=== PATIENT | female | born 1985 | race Caucasian/White ===

== ENCOUNTER 2019-01-14 13:38 | Emergency (ER) | payer OTHER, SELFPAY ==
[2019-01-14 13:40] VITALS: BP 110/73; PULSE 65; RESP 16; TEMP 36.4; O2SAT 97; BMI 24.5
[2019-01-14 14:15] LABS: Absolute Lymphocyte Count 2.16 X10^3/uL (0.83-4.51); Basophil# 0.04 X10^3/uL; Basophil% 0.5 % (0-1); Eosinophil# 0.77 X10^3/uL; Eosinophils% 10.5 % (0-5); Hematocrit 44.8 % (37-47); Hemoglobin 15.4 g/dL (12.0-15.0); Lymphocyte # 2.16 X10^3/ul (4.0); Lymphocyte % 29.3 % (19-41); Mean Corp Hgb Conc 34.4 g/dL (32-36); Mean Corpuscular Hgb 31.6 pg (27.0-32.0); Mean Platelet Vol. 9.9 fl (6.2-12.0); Monocyte# 0.38 X10^3/uL; Monocyte% 5.2 % (0-10); NRBC Flagged by Analyzer 0 % (0-5); Neutrophil # 3.99 X10^3/uL (2.7-7.7); Neutrophil % 54.2 % (47-70); Platelet Count 276 K/mm3 (150-450); RBC Distribution Width SD 40.6 fl (35.1-43.9); Red Blood Count 4.87 M/mm3 (4.2-5.4); White Blood Count 7.4 K/mm3 (4.4-11.0)
[2019-01-14 14:27] LABS: Anion Gap 6 (5-15); BUN 10 mg/dL (7-18); Calcium,Total 9.7 mg/dL (8.5-10.1); Chloride 107 mmol/L (98-107); Creatinine, Serum 0.77 mg/dL (0.55-1.02); EST Glomerular Filtration Rate 91 mL/min (>60); Est Glom Filt Rate - Afr Amer 110 mL/min (>60); Estimated Creatinine Clearance 85.16 ml/min; Glucose 92 mg/dL (74-106); Internal QC Validated? YES +Cl - CLEAR BKGD; Potassium 3.6 mmol/L (3.5-5.1); Pregnancy, Serum, hCG Quali. NEGATIVE Negative; Sodium Level 141 mmol/L (136-145)
--- NOTE | 2019-01-14 15:12 | US_ITS ---
STUDY: ABDOMINAL ULTRASOUND - RIGHT UPPER QUADRANT REASON FOR VISIT: Female, 33 years old intermittent right upper quadrant pain for days. TECHNIQUE: Ultrasound evaluation of the right upper quadrant was performed with real-time and static winters-scale imaging. TECHNICAL QUALITY: Adequate. COMPARISON: None. FINDINGS: Liver: The liver measures 15.0 cm. There is normal echogenicity of the liver. The bile ducts are within normal limits. There is hepatic color flow. The direction of portal flow is hepatopetal. There is no demonstrated mass lesion. Gallbladder: Normal distended gallbladder. The gallbladder wall measures 2 mm. There is a negative sonographic Camar[place]'s sign. There is no pericholecystic fluid. There are no gallstones. Common Bile Duct (C.B.D.): The common bile duct measures 3 mm. Pancreas: Normal size of the head, body and tail of the pancreas. There is normal echogenicity of the pancreas. There is no demonstrated pancreatic mass or cyst. Right Kidney: Normal size of the right kidney. The right kidney measures 9.95 x 3.73 x 4.55 cm. Normal renal cortex. The right cortex measures 1.13 cm. There is no demonstrated renal mass or cyst. 8mm hyper echogenicity at the lower pole could be a nonobstructing stone. The thickness of the renal pelvis region is 12 mm, but there is no other sign of right hydronephrosis. US/Gallbladder IMPRESSION: Possible nonobstructing 8 mm stone at the lower pole of the right kidney. No hydronephrosis. If clinical indications warrant additional imaging, one might consider noncontrast CT. Otherwise, normal right upper quadrant ultrasound. Electronically Signed: Michel Link MD at 17:23 EST , Service support ,
[2019-01-14 15:42] LABS: Mucous, Urine 0 SEEN /hpf (<or=2+); Red Blood Cells-Urine 0 SEEN /hpf (0-5); Squamous Epithelial Cells - UA 0 SEEN /hpf (5-10); White Blood Cells 0 SEEN /hpf (0-5)
[2019-01-14] MEDS: 0.9% Normal Saline 1,000 ML 125 ML IV (15:50)
[2019-01-14 15:54] LABS: Color, Urine Straw (Yellow); Glucose, Dipstick Normal (Normal); Ketone-Dipstick Negative (Negative); Leukocyte Esterase-Dipstick Negative /ul (Negative); Nitrite-Dipstick Negative (Negative); Occult Blood-Urine Negative /ul (Negative); Protein-Dipstick Negative (Negative); Specific Gravity, Urine 1.015 (1.002-1.030); Urine Bilirubin Dipstick Negative (Negative); Urine Clarity Cloudy (Clear); Urine Urobilinogen Normal (Normal)
[2019-01-14 15:58] LABS: AST(SGOT) 4 U/L (15-37); Alanine Aminotransfer ALT/SGPT 21 U/L (13-56); Albumin, Serum 4.4 g/dL (3.2-5.0); Alkaline Phosphatase 73 U/L (45-117); Bilirubin, Direct 0.12 mg/dL (0.00-0.30); Lipase 122 U/L (73-393); Protein, Total 8.4 g/dL (6.4-8.2)
[2019-01-14 16:13] LABS: Amorphous Sediment 1+; Bacteria 4+ /hpf (None Seen)
--- NOTE | 2019-01-14 17:46 | CT_ITS ---
STUDY: CT ABDOMEN AND PELVIS WITHOUT CONTRAST REASON FOR EXAM: Female, 33 years old. Abdominal pain x 1 week. Nausea/vomiting/diarrhea. Possible right kidney stone on ultrasound. RADIATION DOSAGE (If Supplied By Facility): CTDIvol = ( 7.00 ) mGy, DLP = ( 354.78 ) mGycm TECHNIQUE: Transaxial images were obtained from the dome of the diaphragm to the symphysis pubis without oral contrast, and without intravenous contrast. Sagittal and coronal images were reconstructed. Individualized dose optimization techniques were used for this CT. COMPARISON: Right upper quadrant ultrasound 1542 hours. FINDINGS: The visualized lung bases are unremarkable. The visualized portions of the heart are within normal limits. Focal pericapsular calcification along the diaphragm and medial dome of the liver. Normal gallbladder and extrahepatic biliary system. Normal spleen. Normal pancreas. Normal bilateral adrenal glands. 3.5 mm nonobstructing stone seen at the lower pole of the right kidney. Nonobstructing 1 mm stone is questioned at the mid pole of the left kidney. No hydronephrosis Normal visualized stomach. Normal small intestine. Normal colon. The appendix is suggested on series 601 images 37-40 and appears normal. Normal abdominal aorta. Normal inferior vena cava. Normal retroperitoneum. Normal urinary bladder. Normal size uterus, anteverted and mildly tilted to the right of midline. Some heterogeneity in the left ovary consistent with follicular cysts. Possible dominant 1.4 cm left ovarian cyst. There is a small umbilical hernia containing fat. There are mild degenerative changes and mild levoscoliosis of the visualized lumbar spine. CT/Abdomen/Pelvis without Cont IMPRESSION: 1. 3.5 mm nonobstructing stone at the lower pole of the right kidney and possible nonobstructing 1 mm stone on the left. No hydronephrosis. 2. The bowel is unremarkable without sign of obstruction. The appendix is normal. 3. Probable follicular cysts in the left ovary. The uterus is normal. Electronically Signed: Michel Link MD at 18:42 EST , Service support ,
[2019-01-14 19:00] VITALS: BP 116/80; PULSE 82; RESP 16; O2SAT 98
--- NOTE | 2019-01-14 19:12 | ED.DCSUM_ITS ---
- ER Visit Summary Date of Service: 01/14/19 Chief Complaint: [Abdominal pain] History of Present Illness: The patient is a 33 F [presents to the emergency department complaint of abdominal pain that started 3 or 4 days ago. Patient states that she is had intermittent pain mostly the upper abdomen but at times diffusely. Patient states that eating actually will bring it on at times. Patient's had nausea and vomited x2 with this a couple of days ago. She has had some intermittent diarrhea for the last 5 days but none today. Patient denies any fevers. She denies urinary symptoms. She does not feel like she is . She does have history of a hiatal hernia.] Physical Examination: [HEENT-PERRLA, EOMI. Cranial nerves II through XII grossly intact. TMs clear. Mucous membranes moist. No adenopathy. Cardiovascular-regular rate and rhythm without murmur or ectopy Lungs-clear to auscultation, chest wall stable without crepitus or subcu emphysema Abdomen-normoactive bowel sounds, soft, nontender, no rebound or rigidity, no peritoneal signs. Extremities-intact ?4, normal range of motion, normal pulses, atraumatic] Test Results: [CBC with differential count 7.4, hemoglobin 15, hematocrit 45, platelets 276. Chemistries unremarkable. LFTs were unremarkable. Lipase was normal 122. Urinalysis was normal. hCG was negative. Ultrasound of the right upper quadrant showed a questionable 8 mm stone nonobstructing in the right kidney otherwise it was normal. Patient also had a CT flank that showed a 3.5 mm stone in the right kidney otherwise nothing acute.] Emergency Department Course and Treatment: [] Treatment Plan: [Patient will follow-up with general surgeon on-call. Patient will be started on Prevacid.] Disposition: [Discharged home in stable condition.] Impression: [Abdominal pain-etiology uncertain] This note was generated with [employer] dictation software. It may contain incorrect words, spelling, and punctuation that were not noted in review of the chart prior to signing ED Disposition - Plan for ED Patient: Referrals: Avelino Tena DO [Primary Care Provider] -
--- NOTE | 2019-01-14 19:15 | ED.DEP ---
ED Disposition - Plan for ED Patient: Instructions: ABDOMINAL PAIN, Unknown Cause, (Female) Prescriptions: Lansoprazole [Prevacid] 30 mg PO DAILY #30 cap Prescription Printed Ondansetron [Zofran Odt] 4 mg PO Q8H PRN PRN #10 tab PRN Reason: Nausea Prescription Printed Referrals: Avelino Tena DO [Primary Care Provider] - Jaime Hatch MD [STAFF PHYSICIAN] - 3-5 Days
[2019-01-14 19:29] VITALS: RESP 16
== END 2019-01-14 19:30 | disposition home or self-care (01) ==
LOC: ED 15:36
PROVIDERS: Emergency Provider Emergency Medicine; Family Provider Family Medicine; PCP Family Medicine
DX: R10.11 Right upper quadrant pain (principal); R19.7 Diarrhea, unspecified; R11.2 Nausea with vomiting, unspecified
CPT/HCPCS: 74176; 76705; 80048; 80076; 81001; 83690; 84703; 85025; 96360; 96361; 99285; A4216

== ENCOUNTER 2023-02-19 12:08 | Emergency (ER) | payer OTHER, SELFPAY ==
[2023-02-19 12:10] VITALS: BP 111/80; PULSE 94; RESP 14; TEMP 36.2; O2SAT 77; BMI 28.5
--- NOTE | 2023-02-19 12:57 | CT_ITS ---
STUDY: CT Abdomen And Pelvis W/ Contrast Injection 02/19/2023 2:23 PM REASON FOR EXAM: Female, 37 years old. ABDOMINAL PAIN pain, diarrhea TECHNIQUE: Transaxial images were obtained without oral contrast, and with IV 50mL Isovue-370 intravenous contrast. Individualized dose optimization techniques were used for this CT. COMPARISON: 01.14.19 FINDINGS: The visualized lung bases are unremarkable. The visualized portions of the heart are within normal limits. Unremarkable liver. Unremarkable gallbladder and extrahepatic biliary system. Unremarkable spleen. Unremarkable pancreas. Unremarkable bilateral adrenal glands. No acute findings of the right kidney. No acute findings of the left kidney. Unremarkable visualized stomach. Unremarkable small intestine. Diffuse wall thickening and enhancement of the wall of the colon suggesting colitis. The appendix is visualized and appears unremarkable. There are no acute findings of the abdominal aorta. Unremarkable inferior vena cava. Subcentimeter mesenteric lymph nodes. Unremarkable urinary bladder. Normal visualized uterus. Midline ventral hernia and umbilical hernia containing fat. There are diffuse degenerative changes of the visualized lumbar spine. CT/Abdomen/Pelvis W IV Cont ONLY IMPRESSION: (NOT LISTED IN ORDER OF SIGNIFICANCE) Pancolitis. Other findings as above. Electronically Signed: Tee Granger MD at 14:25 [facility] ,
--- NOTE | 2023-02-19 12:58 | ED.VIS.GI ---
HPI HPI - GI History of Present Illness Chief Complaint: Abd Pain Informant: patient and spouse/S.O. Narrative Narrative: Patient presents with about 4 to 5 weeks of diarrhea. Almost 2 months ago patient traveled to [place]. This is because the patient has over 10 years of chronic fatigue and fibromyalgia and just not feeling well. They were hoping to getting some answers for this. While they were there, the patient's Lyme titers came back positive as well as to other tickborne diseases. She was on 5 unknown antibiotics for a period of time. She was also transferred to another hospital in [place] that diagnosed right frontal lobe intermittent seizures. Ever since coming back she has had diarrhea. It actually started while she was still there. It started after 5 of these antibiotics. She is not on them anymore. She has not seen healthcare corporate account director. She called her primary physician who recommended Imodium and fiber. That has not helped a lot. She has never seen blood. She went to [facility] about a week ago. Blood work was done and she was given IV fluids, and they did stool studies including C. difficile colitis which was negative. She has some nonfocal abdominal pain. No family history of ulcerative colitis or Crohn's. She has never had abdominal surgeries. [facility] Medical History Anxiety and depression Epilepsy Lyme disease Home Medications melatonin 5 mg tablet,immediate and extended release 5 mg PO QHS PRN Sleep 12/22/16 [History Last Taken Unknown] lansoprazole 30 mg capsule,delayed release 30 mg PO DAILY #30 caps 01/14/19 [Rx Last Taken Unknown] ondansetron 4 mg disintegrating tablet 4 mg PO Q8H PRN PRN Nausea #10 tabs 01/14/19 [Rx Last Taken Unknown] sertraline 50 mg tablet 50 mg PO DAILY 01/14/19 [History Last Taken Unknown] budesonide 9 mg tablet,delayed and extended release 9 mg PO DAILY #7 ea 02/19/23 [Rx Last Taken Unknown] dicyclomine 20 mg tablet 20 mg PO TID PRN abdominal pain #14 tabs 02/19/23 [Rx Last Taken Unknown] Allergy/AdvReac Type Severity Reaction Status Date / Time No Known Allergies Allergy Verified 02/19/23 12:09 Social History Smoking Status: Never smoker ROS ROS ED ROS Narrative A complete review of systems was performed and is negative except as documented in the history of present illness. Some specific details below. Constitutional: No recent fevers or chills. EYE: No visual complaints or pain. No change in eye color. ENT: No difficulty swallowing. No swelling. No pain. No GERD. CV: No chest pain or palpitations. Respiratory: No dyspnea. No hemoptysis. No difficulty taking breaths. GI: Please see history of present illness. : No frequency dysuria or hematuria. Musculoskeletal: No recent trauma. No pains. Skin: No rash. Nondiaphoretic. Neuro: No weakness or numbness. Endocrine: No polyuria or polydipsia. EXAM Physical Exam Narrative Exam Narrative: CONSTITUTIONAL: Patient is nontoxic in appearance. The patient looks comfortable. HEENT: No notable trauma. Mucous membranes moist. EYES: No conjunctival injection. No icterus. CARDIOVASCULAR: Regular rate. Regular rhythm. No notable murmur. No JVD. RESPIRATORY: No respiratory distress. Breathing is unlabored. No wheezes. No rhonchi. No rales. No pain with a deep breath. GASTROINTESTINAL: Not distended. Bowel sounds are normal. No tenderness. No guarding. No rebound. No palpable mass. No bruit. Overall abdominal exam is benign. GENITOURINARY: No tenderness over the bladder. No CVA tenderness. MUSCULOSKELETAL: Atraumatic. No peripheral edema. NEUROLOGICAL: Patient is alert and appropriate. No focal deficit noted. SKIN: No noted rashes. No diaphoresis. PSYCHIATRIC: Patient is calm. Mood is flat. Const Vital Signs: 02/19/23 12:10 Temperature 97.1 F L Temperature Source Temporal Pulse Rate 94 Respiratory Rate 14 Blood Pressure 111/80 Blood Pressure Mean 90 Pulse Ox 77 Oxygen Delivery Method Room Air MDM MDM MDM Narrative Medical decision making narrative: My independent interpretation of the patient's CT of the abdomen shows no obstruction or ileus. Mild thickening of the colon. Final reading is some pancolitis but normal small bowel and visualized appendix. Patient BC is normal. Patient's electrolytes show minimally low potassium at 3.3 but that should self-correct. Glucose is minimally up at 112. Patient's liver function test are normal. We talked about options. I really do not want to give this patient further antibiotics. She has no fever no white count. I was able to get back her C. difficile and that is negative. There is no family history of ulcerative colitis or Crohn's. But I wonder if she may have UC. I will give her oral budesonide to see if this will calm things down. I have strongly encouraged follow-up with healthcare corporate account director as soon as they are able to get in. Lab Data Attestation: I reviewed the patient's lab results. Labs: Laboratory Results - last 24 hr 02/19/23 12:30 WBC 5.3 RBC 4.67 Hgb 14.1 Hct 43.0 MCV 92.1 MCH 30.2 MCHC 32.8 RDW Std Deviation 43.8 RDW Coeff of Annetta 13.2 Plt Count 348 MPV 9.5 Immature Gran % (Auto) 0.600 Neut % (Auto) 57.4 Lymph % (Auto) 29.4 [place] % (Auto) 9.6 Eos % (Auto) 2.1 Baso % (Auto) 0.9 Absolute Neuts (auto) 3.1 Absolute Lymphs (auto) 1.56 Nucleated RBC % 0 Sodium 139 Potassium 3.3 L Chloride 106 Carbon Dioxide 29.0 Anion Gap 4 L BUN 5 L Creatinine 0.84 Estim Creat Clear Calc 75.12 Est GFR (MDRD) Af Amer 98 Est GFR (MDRD) Non-Af 81 BUN/Creatinine Ratio 6.0 L Glucose 112 H Calcium 9.4 Total Bilirubin 0.40 AST 6 L ALT 35 Alkaline Phosphatase 63 Total Protein 7.2 Albumin 3.4 Globulin 3.8 Albumin/Globulin Ratio 0.9 Radiography Diagnostic Testing: Clinical Impression(s) from Imaging Studies Abdomen/Pelvis CT 02/19/23 12:57 IMPRESSION: (NOT LISTED IN ORDER OF SIGNIFICANCE) Pancolitis. Other findings as above. Electronically Signed: Tee Granger MD at 14:25 EST , Discharge Plan Triage Chief Complaint: Abd Pain ED Provider: Mina Medeiros Dx/Rx/DC Orders Clinical Impression: Pancolitis, Chronic diarrhea Instructions: ED Understanding Colitis Prescriptions: New budesonide 9 mg tablet,delayed and ext.release 9 mg PO DAILY Qty: 7 0RF dicyclomine 20 mg tablet 20 mg PO TID PRN (Reason: abdominal pain) Qty: 14 0RF No Action melatonin 5 MG tablet, IR and ER, biphasic 5 mg PO QHS PRN (Reason: Sleep) sertraline 50 MG tablet 50 mg PO DAILY ondansetron 4 MG tablet 4 mg PO Q8H PRN PRN (Reason: Nausea) Qty: 10 0RF lansoprazole 30 MG capsule 30 mg PO DAILY Qty: 30 0RF Primary Care Provider: Avelino Tena Referrals: Avelino Tena DO [Primary Care Provider] - As soon as possible Zachary Vivar DO [Med Staff - Active Staff] - As soon as possible Vlad Patricia MD [Non-Staff] - As soon as possible Disposition Disposition: Home, Self Care
--- OUTSIDE RECORDS SUMMARY | 2023-02-19 12:58 | XMS RPT_ITS | CCD ---
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 Summary Purpose Family History No Family History Records Found Advance Directives No Advanced Directives Records Found Additional Source Comments INFORMATION SOURCE (unrecogn ized section and content) FOR RECORDS PERTAINING TO PATIENTS WHO ARE OR HAVE BEEN ENROLLED IN A CHEMICAL DEPENDENCY/SUBSTANCEABUSE PROGRAM, SOME INFORMATION MAY BE OMITTED. This clinical summary was aggregated from multiple sources. Caution should be exercised in using it in the provision of clinical care. This summary normalizes information from multiple sources, and as a consequence, information in this document may materially change the coding, format and clinical context of patient data. In addition, data may be omitted in some cases. CLINICAL DECISIONS SHOULD BE BASED ON THE PRIMARY CLINICAL RECORDS. [employer] provides no warranty or guarantee of the accuracy or completeness of information in this document.
[2023-02-19] MEDS: 0.9% Normal Saline (1000mL) 1,000 ML 1000 ML IV (13:04)
[2023-02-19 13:17] LABS: Absolute Lymphocyte Count 1.56 X10^3/uL (0.83-4.51); Absolute Neutrophil Count 3.1 X10^3/uL (2.0-7.7); Basophil# 0.05 X10^3/uL; Basophil% 0.9 % (0-1); Eosinophil# 0.11 X10^3/uL; Eosinophils% 2.1 % (0-5); Hemoglobin 14.1 g/dL (12.0-15.0); Lymphocyte # 1.56 X10^3/ul (0.83-4.51); Lymphocyte % 29.4 % (19-41); Mean Corp Hgb Conc 32.8 g/dL (32-36); Mean Corpuscular Hgb 30.2 pg (27.0-32.0); Mean Corpuscular Volume 92.1 fL (81-99); Mean Platelet Vol. 9.5 fl (6.2-12.0); Monocyte# 0.51 X10^3/uL; Monocyte% 9.6 % (0-10); NRBC Flagged by Analyzer 0 % (0-5); Neutrophil # 3.05 X10^3/uL (2.7-7.7); Neutrophil % 57.4 % (47-70); Platelet Count 348 K/mm3 (150-450); RBC Distribution Width CV 13.2 % (11.6-14.6); RBC Distribution Width SD 43.8 fl (35.1-43.9); Red Blood Count 4.67 M/mm3 (4.2-5.4); White Blood Count 5.3 K/mm3 (4.4-11.0)
[2023-02-19 13:29] LABS: ALB/GLOB Ratio 0.9 RATIO (0.9-2.4); AST(SGOT) 6 U/L (15-37); Alanine Aminotransfer ALT/SGPT 35 U/L (13-56); Albumin, Serum 3.4 g/dL (3.2-5.0); Alkaline Phosphatase 63 U/L (45-117); Anion Gap 4 (5-15); BUN 5 mg/dL (7-18); Calcium,Total 9.4 mg/dL (8.5-10.1); Chloride 106 mmol/L (98-107); Creatinine, Serum 0.84 mg/dL (0.55-1.02); EST Glomerular Filtration Rate 81 mL/min (>60); Est Glom Filt Rate - Afr Amer 98 mL/min (>60); Estimated Creatinine Clearance 75.12 ml/min; Globulin 3.8 g/dL (2.2-4.2); Glucose 112 mg/dL (74-106); Potassium 3.3 mmol/L (3.5-5.1); Protein, Total 7.2 g/dL (6.4-8.2); Sodium Level 139 mmol/L (136-145)
[2023-02-19] MEDS: Budesonide 3 MG CAPSULE.EC 9 MG PO (16:27)
[2023-02-19 16:32] VITALS: BP 121/75
== END 2023-02-19 16:34 | disposition home or self-care (01) ==
PROVIDERS: Emergency Provider Emergency Medicine; PCP Family Medicine; Visit Provider Emergency Medicine
DX: K52.9 Noninfective gastroenteritis and colitis, unspecified (principal); R19.7 Diarrhea, unspecified
CPT/HCPCS: 74177; 80053; 83630; 85025; 87177; 87209; 87493; 87506; 99283; J7030; Q9967; A4216

== ENCOUNTER 2024-03-18 20:35 | Emergency (ER) | payer OTHER, SELFPAY ==
[2024-03-18 20:36] VITALS: BP 124/78; PULSE 72; RESP 18; TEMP 36.6; O2SAT 97; BMI 31.0
[2024-03-18 21:08] LABS: Absolute Lymphocyte Count 2.54 X10^3/uL (0.83-4.51); Absolute Neutrophil Count 3.7 X10^3/uL (2.0-7.7); Basophil# 0.03 X10^3/uL; Basophil% 0.4 % (0-1); Eosinophil# 0.01 X10^3/uL; Eosinophils% 0.1 % (0-5); Hematocrit 40.1 % (37-47); Hemoglobin 13.6 g/dL (12.0-15.0); Lymphocyte # 2.54 X10^3/ul (0.83-4.51); Lymphocyte % 37.6 % (19-41); Mean Corp Hgb Conc 33.9 g/dL (32-36); Mean Corpuscular Hgb 30.6 pg (27.0-32.0); Mean Corpuscular Volume 90.3 fL (81-99); Mean Platelet Vol. 9.4 fl (6.2-12.0); Monocyte# 0.43 X10^3/uL; Monocyte% 6.4 % (0-10); NRBC Flagged by Analyzer 0 % (0-5); Neutrophil # 3.73 X10^3/uL (2.7-7.7); Neutrophil % 55.4 % (47-70); Platelet Count 276 K/mm3 (150-450); RBC Distribution Width CV 12.9 % (11.6-14.6); RBC Distribution Width SD 42.6 fl (35.1-43.9); Red Blood Count 4.44 M/mm3 (4.2-5.4); White Blood Count 6.8 K/mm3 (4.4-11.0)
[2024-03-18 21:10] LABS: Anion Gap 7 (5-15); BUN 14 mg/dL (7-18); BUN/Creat Ratio 17.7 RATIO (10-20); Calcium,Total 9.1 mg/dL (8.5-10.1); Chloride 106 mmol/L (98-107); Creatinine, Serum 0.79 mg/dL (0.55-1.02); EST Glomerular Filtration Rate 86 mL/min (>60); Est Glom Filt Rate - Afr Amer 104 mL/min (>60); Estimated Creatinine Clearance 95.48 ml/min; Glucose 135 mg/dL (74-106); Potassium 3.5 mmol/L (3.5-5.1); Sodium Level 139 mmol/L (136-145)
[2024-03-18 21:13] LABS: hCG Titer Quant., Serum < 1 mIU/mL (1-3)
[2024-03-18 21:46] VITALS: BP 138/81; PULSE 79; RESP 16; O2SAT 97
--- NOTE | 2024-03-18 22:18 | US_ITS ---
INDICATION: Vaginal bleeding EXAMINATION: Ultrasound US Transvaginal Non-OB TECHNIQUE: Transvaginal (for optimal evaluation of the adnexa) pelvic ultrasound was performed. Grayscale, spectral waveform, and color flow Doppler evaluation of the adnexa. COMPARISON: No relevant prior comparison study available LMP: 03/01/2024 FINDINGS: UTERUS: 9.5 cm length. Fibroid posteriorly in the left, 2.1 x 1.8 x 1.2 cm. ENDOMETRIUM: Not thickened. 0.7 cm maximal thickness. Nabothian cyst in the cervix. OVARIES: Right ovary: 4.1 x 1.8 x 2.6 cm. Small follicles. Left ovary: 3.5 x 1.8 x 2.1 cm. A few follicles. The ovaries appear unremarkable. Vascular flow demonstrated. No findings to suggest ovarian torsion. FREE FLUID: None. US/Transvaginal Non- IMPRESSION: Uterine fibroid.. Electronically Signed: Daphney Keller MD at 0:10 EST ,
[2024-03-18 23:00] VITALS: BP 103/66; PULSE 64; RESP 16; O2SAT 97
--- NOTE | 2024-03-19 00:32 | EDS_ITS ---
HPI HPI - Female History of Present Illness Chief Complaint: Vag Bleeding Informant: patient and spouse/S.O. Narrative Narrative: Patient is a 38-year-old female with past medical history of POTS anxiety and epilepsy. She states that she is in the process of being worked up for endometriosis. She states that in order to see if her recurrent symptoms would resolve with suppression of her menstrual cycle she was placed on high dose hormones for multiple weeks. She states she finished those in the last 2 to 3 weeks and states she then had a menstrual cycle which seems normal to her. However she then developed repeat bleeding and states it is heavier and more painful than normal and with the short timeframe between recurrent episodes of bleeding and concern for potential blood loss she presents for evaluation. Patient denies any history of bleeding disorder or blood thinner use [facility] Medical History (Updated 03/19/24 @ 05:[address] Damien Minaya, DO) POTS (postural orthostatic tachycardia syndrome) Anxiety and depression Epilepsy Lyme disease Home Medications ?Medication ?Instructions ?Recorded ?Last Taken ?Type melatonin 5 mg tablet,immediate 5 mg PO QHS PRN Sleep 12/22/16 Unknown History and extended release lansoprazole 30 mg capsule,delayed 30 mg PO DAILY #30 caps 01/14/19 Unknown Rx release ondansetron 4 mg disintegrating 4 mg PO Q8H PRN PRN Nausea #10 tabs 01/14/19 Unknown Rx tablet sertraline 50 mg tablet 50 mg PO DAILY 01/14/19 Unknown History budesonide 9 mg tablet,delayed and 9 mg PO DAILY #7 ea 02/19/23 Unknown Rx extended release dicyclomine 20 mg tablet 20 mg PO TID PRN abdominal pain 02/19/23 Unknown Rx #14 tabs levetiracetam 250 mg tablet 250 mg PO BID 03/18/24 Unknown History (Keppra) trazodone 50 mg tablet 75 mg PO QHS 03/18/24 Unknown History venlafaxine 150 mg 150 mg PO DAILY 03/18/24 Unknown History capsule,extended release 24 hr (Effexor XR) Allergy/AdvReac Type Severity Reaction Status Date / Time Food Allergies: Uncoded AdvReac Mild Vomiting Verified 03/18/24 20:39 Family History no significant family his Social History Smoking Status: Never smoker ROS ROS ED Constitutional Constitutional ED: Denies chills or fever(s) Eyes Eyes: Denies blurry vision or change in vision ENT ENT ED: Denies sore throat Cardiovascular Cardiovascular: Denies chest pain, palpitations or racing heartbeat Respiratory/Chest Respiratory/Chest: Denies cough or dyspnea Gastrointestinal Gastrointestinal: Denies abdominal pain, diarrhea, nausea or vomiting Genitourinary Genitourinary ED: Reports other Details: Positive vaginal bleeding ; Denies dysuria or urinary frequency Musculoskeletal Musculoskeletal: Denies myalgias Integumentary Denies rash Neurologic Neurologic: Denies headache(s) or weakness Hematologic/Lymphatic Hematologic/Lymphatic: Denies easy bleeding or easy bruising EXAM Physical Exam Const Vital Signs: 03/18/24 20:36 03/18/24 21:46 03/18/24 23:00 Temperature 97.8 F Temperature Source Temporal Pulse Rate 72 79 64 Respiratory Rate 18 16 16 Blood Pressure 124/78 H 138/81 H 103/66 Blood Pressure Mean 93 100 78 Pulse Ox 97 97 97 Oxygen Delivery Method Room Air Room Air Room Air 03/19/24 00:39 Temperature 98.2 F Temperature Source Pulse Rate 65 Respiratory Rate 18 Blood Pressure 114/72 Blood Pressure Mean 86 Pulse Ox 95 Oxygen Delivery Method Positive well nourished and well developed General Appearance ED: well developed; Negative for pallor HEENT HEENT Narrative: Normocephalic atraumatic Eyes PERRL and EOMs intact bilaterally General Eye ED: Negative for pale conjunctiva or scleral icterus Neck supple Resp normal respiratory effort and clear to auscultation bilaterally Cardio regular rate and regular rhythm Rate: other Other Details: Heart is regular rate and rhythm without murmurs rubs or gallop Radial and carotid pulses are equal and symmetric GI normal to inspection, nondistended, normoactive bowel sounds, soft to palpation, non-tender, non-distended and no masses Auscultation: normoactive bowel sounds Palpation: soft Narrative: Patient deferred Back/Spine no CVA tenderness Extremity normal to inspection and full ROM Neuro oriented x3, CN's II-XII intact bilaterally and no sensory deficits noted Sensorium / Orientation: alert Motor Exam: strength 5/5 throughout Psych Psych Narrative: Patient has a flat affect Skin no rashes or lesions noted and no wounds General Skin Exam: Negative for jaundice or pallor MDM MDM MDM Narrative Medical decision making narrative: Patient arrived to the ER with stable vitals. With report of large amounts of vaginal bleeding there is concern this could be related to a complication such as ectopic . Patient also might have acute blood loss anemia. There is concern for ovarian cyst or dysfunctional uterine bleeding related to her recent hormone use. Patient blood work was obtained and showed a normal hemoglobin and hematocrit going against acute blood loss anemia. hCG value is less than 1 going against complication such as ectopic . Transvaginal ultrasound revealed a uterine fibroid without ovarian cyst or torsion. Patient's vitals were stable the entire time in the ER she is not in need of a blood transfusion she does not need emergent [facility] consultation as her bleeding is controlled and vital stable and she is not having a secondary to a ectopic . Patient and spouse were informed this is related most likely to the fact she was on high-dose hormones which have recently stopped allowing for fluctuations at her baseline and therefore causing derangement to her menstrual cycle. At this time there is no need for transfusion she does not have a complication her vitals are stable and she does not have findings concerning for infectious process therefore she is otherwise safe for discharge with outpatient follow-up History & Record Review Discussion w/independent historian: Patient and Significant other Lab Data Attestation: I reviewed the patient's lab results. Labs: Laboratory Results - last 24 hr 03/18/24 20:48 WBC 6.8 RBC 4.44 Hgb 13.6 Hct 40.1 MCV 90.3 MCH 30.6 MCHC 33.9 RDW Std Deviation 42.6 RDW Coeff of Annetta 12.9 Plt Count 276 MPV 9.4 Immature Gran % (Auto) 0.100 Neut % (Auto) 55.4 Lymph % (Auto) 37.6 Bowie % (Auto) 6.4 Eos % (Auto) 0.1 Baso % (Auto) 0.4 Absolute Neuts (auto) 3.7 Absolute Lymphs (auto) 2.54 Nucleated RBC % 0 Sodium 139 Potassium 3.5 Chloride 106 Carbon Dioxide 26.0 Anion Gap 7 BUN 14 Creatinine 0.79 Estim Creat Clear Calc 95.48 Est GFR (MDRD) Af Amer 104 Est GFR (MDRD) Non-Af 86 BUN/Creatinine Ratio 17.7 Glucose 135 H Calcium 9.1 HCG, Quant < 1 Radiography Diagnostic Testing: Clinical Impression(s) from Imaging Studies Transvaginal US 03/18/24 22:18 IMPRESSION: Uterine fibroid.. Electronically Signed: Daphney Keller MD at 0:10 EST , Discharge Plan Triage Chief Complaint: Vag Bleeding ED Provider: Damien Minaya Dx/Rx/DC Orders Clinical Impression: DUB (dysfunctional uterine bleeding), Uterine fibroid, Postural orthostatic tachycardia syndrome [POTS], Anxiety and depression Instructions: ED Dysfunctional Uterine Bleeding, ED Uterine Fibroids Prescriptions: No Action melatonin 5 MG tablet, IR and ER, biphasic 5 mg PO QHS PRN (Reason: Sleep) sertraline 50 MG tablet 50 mg PO DAILY ondansetron 4 MG tablet 4 mg PO Q8H PRN PRN (Reason: Nausea) Qty: 10 0RF lansoprazole 30 MG capsule 30 mg PO DAILY Qty: 30 0RF budesonide 9 mg tablet,delayed and ext.release 9 mg PO DAILY Qty: 7 0RF dicyclomine 20 mg tablet 20 mg PO TID PRN (Reason: abdominal pain) Qty: 14 0RF levetiracetam [Keppra] 250 mg tablet 250 mg PO BID venlafaxine [Effexor XR] 150 mg capsule,extended release 24hr 150 mg PO DAILY trazodone 50 mg tablet 75 mg PO QHS Primary Care Provider: Avelino Tena Referrals: Avelino Tena DO [Primary Care Provider] - Activity Restrictions/Additional Instructions: Please follow-up with [facility] for repeat evaluation and return to the ER should you have any further concern Print Language: Belarusian Disposition Disposition: Home, Self Care Discharge Date/Time: 03/19/24 00:40
[2024-03-19 00:39] VITALS: BP 114/72; PULSE 65; RESP 18; TEMP 36.8; O2SAT 95
== END 2024-03-19 00:40 | disposition home or self-care (01) ==
PROVIDERS: Emergency Medicine; Emergency Provider Emergency Medicine; PCP Family Medicine; Referring Provider Emergency Medicine; Visit Provider Emergency Medicine
DX: N93.9 Abnormal uterine and vaginal bleeding, unspecified (principal); D25.9 Leiomyoma of uterus, unspecified; G90.A Postural orthostatic tachycardia syndrome [POTS]; F32.A Depression, unspecified; F41.9 Anxiety disorder, unspecified
CPT/HCPCS: 76830; 80048; 84702; 85025; 99282; A4216